=== PATIENT | female | born 1955 | race Caucasian/White ===

== ENCOUNTER 2019-11-17 12:36 | Emergency (ER) | payer OTHER ==
[~2019-11-17] VITALS: Ht 160 cm; Wt 90.7 kg
[2019-11-17] MEDS ORDERED: NORFLEX100MG PO (12:46)
[2019-11-17] MEDS ORDERED: NAPROXEN SODIU550 MG PO (12:46)
[2019-11-17] MEDS ORDERED: TENORMIN50 M1 PO (12:46)
[2019-11-17] MEDS ORDERED: ZESTRIL2.5 MG PO (12:46)
== END 2019-11-17 16:38 | disposition home or self-care (01) ==
LOC: ER 12:36
DX: S33.9XXA Sprain of unspecified parts of lumbar spine and pelvis, initial encounter (principal); X50.0XXA Overexertion from strenuous movement or load, initial encounter; Y93.B2 Activity, push-ups, pull-ups, sit-ups; Y92.89 Other specified places as the place of occurrence of the external cause; Y99.8 Other external cause status